=== PATIENT | female | born 1965 | race African-American/Black ===

== ENCOUNTER 2021-03-02 13:17 | Emergency (ER) | payer MEDICAID ==
[~2021-03-02] VITALS: Ht 165.1 cm; Wt 86.0 kg
[2021-03-02] MEDS ORDERED: TETANUS, DIPHTHERIA, PERTUSSIS VAC/PF 0.5ML (>10YR OLD) IM ONE (13:45)
[2021-03-02] MEDS ORDERED: ACETAMINOPHEN 325MG TABLET PO ONE (13:45)
[2021-03-02] MEDS ORDERED: BACITRACIN ZINC OINT UDPKT TOP ONE (13:45)
[2021-03-02] MEDS ORDERED: BACITRACIN ZINC OINT UDPKT TOP NR (14:30)
[2021-03-02] MEDS ORDERED: BO1 TP (16:03)
[2021-03-02 16:19] VITALS: BP 151/86
== END 2021-03-02 16:20 | disposition home or self-care (01) ==
LOC: ER 13:39
DX: S89.91XA Unspecified injury of right lower leg, initial encounter (principal); I10 Essential (primary) hypertension; Z88.6 Allergy status to analgesic agent; Z86.73 Personal history of transient ischemic attack (TIA), and cerebral infarction without residual deficits; W18.30XA Fall on same level, unspecified, initial encounter; Y93.89 Activity, other specified; Y92.89 Other specified places as the place of occurrence of the external cause; Y99.8 Other external cause status
CPT/HCPCS: 73562; 90471; 90715; 99283

== ENCOUNTER 2021-05-25 08:58 | Emergency (ER) | payer MEDICAID, OTHER ==
[~2021-05-25] VITALS: Ht 165.1 cm; Wt 65.0 kg
[~2021-05-25 08:58] MED LIST: BO1 TP
[2021-05-25] MEDS ORDERED: MORPHINE SULFATE 4 MG/ML CPJ (NOT FOR IM USE) IV ONE ×2 (10:45→15:45)
[2021-05-25] MEDS ORDERED: ONDANSETRON HCL 4MG/2ML INJ IV ONE (10:45)
[2021-05-25 12:21] LABS: BASOPHILS % 0.8 % (0.0-2.0); EOSINOPHILS % 1.3 % (0.0-5.0); HEMATOCRIT. 34.8 % (36.0-48.0); HEMOGLOBIN. 11.6 g/dL (12.0-16.0); LYMPHOCYTES % 37.6 % (20.0-50.0); MEAN CORPUSCULAR HEMOGLOBIN 27.3 pg (28.0-32.0); MEAN CORPUSCULAR VOLUME 82.1 fL (81.0-99.0); MEAN PLATELET VOLUME 7.6 fl (7.4-10.4); MONOCYTES % 10.7 % (2.0-8.0); NEUTROPHILS % 49.6 % (40.0-76.0); PLATELET 260 x1000/uL (130-400); RED BLOOD CELL COUNT 4.23 mill/uL (4.2-5.4); RED CELL DISTRIBUTION WIDTH 14.2 % (11.6-14.6)
[2021-05-25 12:27] LABS: CHLORIDE 108 mEq/L (98-107)
[2021-05-25 12:52] LABS: HCG SCREEN NEGATIVE
[2021-05-25] MEDS ORDERED: ONDA4TAB5 MT (13:43)
[2021-05-25] MEDS ORDERED: DICY10CA88 MT (13:43)
[2021-05-25] MEDS ORDERED: ACETAMINOPHEN 325MG TABLET PO ONE (13:45)
[2021-05-25 14:23] LABS: CLARITY URINE CLEAR (CLEAR); COLOR URINE YELLOW (YELLOW); KETONES URINE NEGATIVE (NEGATIVE); LEUKOCYTE ESTERASE URINE NEGATIVE (NEGATIVE); NITRITE URINE POSITIVE (NEGATIVE); OCCULT BLOOD URINE NEGATIVE (NEGATIVE); PROTEIN URINE NEGATIVE (NEGATIVE); UROBILINOGEN URINE 0.2 E.U./dL (0.2-1.0)
[2021-05-25] MEDS ORDERED: KETOROLAC 15MG/ML VIAL IV ONE (17:30)
[2021-05-25] MEDS ORDERED: CEPH500T MT (23:21)
[2021-05-26] MEDS: CEPHALEXIN 250MG CAPSULE PO SCH (00:22)
[2021-05-26 02:00] VITALS: BP 124/61
== END 2021-05-26 02:11 | disposition home or self-care (01) ==
LOC: ER 09:25
DX: R10.9 Unspecified abdominal pain (principal); R11.2 Nausea with vomiting, unspecified; I10 Essential (primary) hypertension; Z88.6 Allergy status to analgesic agent; Z86.73 Personal history of transient ischemic attack (TIA), and cerebral infarction without residual deficits
CPT/HCPCS: 36415; 71045; 74176; 80053; 81003; 83605; 83690; 84703; 85025; 87426; 93005; 96374; 96375; 99285; J1885; J2270; J2405

== ENCOUNTER 2021-06-22 14:01 | Emergency (ER) | payer OTHER ==
[~2021-06-22] VITALS: Ht 167.6 cm; Wt 82.0 kg
[~2021-06-22 14:01] MED LIST changes: +CEPH500T MT; +DICY10CA88 MT; +ONDA4TAB5 MT
[2021-06-22 14:07] VITALS: BP 142/86
== END 2021-06-22 22:50 | disposition left against medical advice (07) ==
LOC: ER 14:01
DX: M54.50 Low back pain, unspecified (principal); R51.9 Headache, unspecified
CPT/HCPCS: 72100